=== PATIENT | female | born 2005 | race American Indian/Alaskan Native ===

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

== ENCOUNTER 2023-01-20 20:42 | Emergency (ER) | payer MEDICAID ==
[~2023-01-20 20:42] MED LIST: Sodium Chloride 0.9% 1,000 ML IV ONE
[2023-01-20] MEDS ORDERED: Ondansetron 4 MG/2 ML SDV ONE (20:53)
[2023-01-20] MEDS ORDERED: Ondansetron 4 MG/2 ML SDV IVPUSH ONE (20:55)
[2023-01-20 21:20] VITALS: BP 128/65; PULSE 100
[2023-01-20] MEDS ORDERED: Sodium Chloride 0.9% 1,000 ML IV ONE (22:18)
== END 2023-01-20 23:29 | disposition home or self-care (01) ==
LOC: DL.ED 20:42
DX: F10.120 Alcohol abuse with intoxication, uncomplicated (principal); Y90.8 Blood alcohol level of 240 mg/100 ml or more
CPT/HCPCS: 36415; 80143; 80179; 80307; 82947; 96374; 99283; 99284; J2405; J7030

== ENCOUNTER 2023-07-04 08:19 | Emergency (ER) | payer MEDICAID ==
[2023-07-04 09:05] VITALS: BP 124/74; PULSE 72
[2023-07-04] MEDS ORDERED: Ketorolac 30 MG/ML SDV IM ONE (09:10)
== END 2023-07-04 09:34 | disposition home or self-care (01) ==
LOC: DL.ED 08:19
DX: S76.912A Strain of unspecified muscles, fascia and tendons at thigh level, left thigh, initial encounter (principal); Z79.899 Other long term (current) drug therapy; W18.40XA Slipping, tripping and stumbling without falling, unspecified, initial encounter
CPT/HCPCS: 96372; 99282; 99283; J1885

== ENCOUNTER 2023-11-30 14:02 | Emergency (ER) | payer MEDICAID, OTHER ==
[2023-11-30 14:20] VITALS: BP 107/87; PULSE 78
[2023-11-30] MEDS: Sodium Chloride 0.9% 10 ML Syringe FLUSH PRN (14:35)
[2023-11-30] MEDS: MVI, Adult with Vitamin K 10 ML, Folic Acid 1 MG, Thiamine 100 MG in Lactated Ringers 1... IV ONE (14:35)
[2023-11-30] MEDS ORDERED: Ondansetron 4 MG/2 ML SDV ONE (14:52)
[2023-11-30 14:56] LABS: A/G RATIO 0.8; ALBUMIN 3.7 g/dL (3.4-5.0); ANION GAP 16.1 mEq/L (7-13); BILIRUBIN TOTAL 0.2 mg/dL (0.2-1.0); BUN/CREATININE RATIO 7.2 (No establ ref range); CALCIUM 8.1 mg/dL (8.5-10.1); CREATININE 0.69 mg/dL (0.55-1.02); EST CRCL DRUG DOSING (CG) 126.47 mL/min; MAGNESIUM 2.4 mg/dL (1.8-2.4); POTASSIUM,K 4.1 mmol/L (3.5-5.1); PROTEIN TOTAL,TP 8.2 g/dL (6.4-8.2)
[2023-11-30] MEDS: Ondansetron 4 MG/2 ML SDV IVPUSH ONE (15:00)
[2023-11-30 16:00] LABS: AMPHETAMINES,URINE NEGATIVE (NEGATIVE); BARBITURATES,URINE NEGATIVE (NEGATIVE); BENZODIAZEPINE,URINE NEGATIVE (NEGATIVE); MDMA (ECSTASY), URINE NEGATIVE (NEGATIVE); METHADONE,URINE NEGATIVE (NEGATIVE); METHAMPHETAMINES,URINE NEGATIVE (NEGATIVE); OPIATES,URINE NEGATIVE (NEGATIVE); OXYCODONE,URINE NEGATIVE (NEGATIVE); PHENCYCLIDINE,URINE NEGATIVE (NEGATIVE); TCA,URINE NEGATIVE (NEGATIVE)
== END 2023-11-30 16:35 ==
LOC: DL.ED 14:02
DX: F10.129 Alcohol abuse with intoxication, unspecified (principal); Z79.899 Other long term (current) drug therapy; Y90.8 Blood alcohol level of 240 mg/100 ml or more
CPT/HCPCS: 36415; 80053; 80305; 80307; 81025; 83735; 85025; 96365; 96375; 99284; J2405; J3411; J7120; J3490

== ENCOUNTER 2025-02-06 19:14 | Emergency (ER) | payer SELFPAY ==
[2025-02-06 19:38] LABS: BASOPHILS PERCENT AUTO 0.4 % (0.0-1.0); EOSINOPHILS PERCENT AUTO 1.1 % (1.0-3.0); LYMPHOCYTES PERCENT AUTO 44.6 % (20.5-50.1); MONOCYTES PERCENT AUTO 7.9 % (2-8); NEUTROPHILS PERCENT AUTO 46.0 % (42.2-75.2); PLATELET COUNT,PLT 341 10^3/uL (150-450); RED BLOOD CELL COUNT 4.61 10^6/uL (4.2-5.4); WHITE BLOOD CELL COUNT,WBC 7.1 10^3/uL (5.0-10.0)
[2025-02-06] MEDS: Midazolam 1 MG/ML 2 ML SDV IVPUSH ONE (19:41)
[2025-02-06 19:43] LABS: APPEARANCE,URINE CLEAR (CLEAR); GLUCOSE,URINE NEGATIVE (NEGATIVE); OCCULT BLOOD,URINE NEGATIVE (NEGATIVE)
[2025-02-06 19:48] LABS: AMPHETAMINES,URINE NEGATIVE (NEGATIVE); BARBITURATES,URINE NEGATIVE (NEGATIVE); MDMA (ECSTASY), URINE NEGATIVE (NEGATIVE); METHAMPHETAMINES,URINE NEGATIVE (NEGATIVE); OPIATES,URINE NEGATIVE (NEGATIVE); OXYCODONE,URINE NEGATIVE (NEGATIVE); PHENCYCLIDINE,URINE NEGATIVE (NEGATIVE); TCA,URINE NEGATIVE (NEGATIVE)
[2025-02-06 20:01] LABS: LACTIC ACID 1.4 mmol/L (0.4-2.0)
[2025-02-06 20:05] LABS: A/G RATIO 0.7; ALANINE AMINOTRANSFERASE,ALT 267 U/L (14-59); ASPARTATE AMNIOTRANSFERASE,AST 310 U/L (15-37); BILIRUBIN TOTAL 0.4 mg/dL (0.2-1.0); BLOOD UREA NITROGEN,BUN 7 mg/dL (7-18); CARBON DIOXIDE,CO2 26 mmol/L (21-32); CHLORIDE,CL 105 mmol/L (98-107); CREATINE KINASE,CK 43 U/L (16-191); CREATININE 0.65 mg/dL (0.55-1.02); EST CRCL DRUG DOSING (CG) 108.28 mL/min; GLUCOSE RANDOM 101 mg/dL (70-99); POTASSIUM,K 3.4 mmol/L (3.5-5.1); PROTEIN TOTAL,TP 8.2 g/dL (6.4-8.2); SODIUM,NA 142 mmol/L (136-145)
[2025-02-06 20:11] LABS: ESTIMATED GFR 128 mL/min (>=60)
[2025-02-06 20:12] LABS: ETHANOL BLOOD MEDICAL 420 mg/dL (0)
[2025-02-06 20:50] VITALS: BP 93/61; PULSE 66
[2025-02-06] MEDS: Thiamine 200 MG/2 ML MDV IM ONE (21:37)
== END 2025-02-06 23:55 | disposition home or self-care (01) ==
LOC: DL.ED 19:14 → EEVIPCON 19:14 → DL.ED 23:55
DX: F10.920 Alcohol use, unspecified with intoxication, uncomplicated (principal); R55 Syncope and collapse; Z79.899 Other long term (current) drug therapy; Y90.8 Blood alcohol level of 240 mg/100 ml or more
CPT/HCPCS: 36415; 70450; 71045; 72125; 80053; 80305; 80307; 81003; 81025; 82550; 83605; 83690; 83735; 84484; 85025; 93005; 96361; 96372; 96374; 99285; J2250; J3411; J7030; 93010; 99284